=== PATIENT | female | born 1960 | race Caucasian/White ===

== ENCOUNTER 2019-10-01 00:27 | Outpatient (CLI) | payer OTHER, SELFPAY ==
[2019-10-01 19:09] LABS: SARS-CoV-2 RNA PCR Negative
== END 2019-10-01 00:28 | disposition home or self-care (01) ==
LOC: ANHCOVIDDT 00:27
PROVIDERS: PCP Internal Medicine; Visit Provider Internal Medicine Gastroenterology
DX: Z01.812 Encounter for preprocedural laboratory examination (principal); Z11.59 Encounter for screening for other viral diseases
CPT/HCPCS: 87635; C9803; U0003

== ENCOUNTER 2019-10-03 01:02 | Day surgery (SDC) | payer OTHER, SELFPAY ==
[2019-09-26 12:37] VITALS: BMI 33.1
[2019-10-03 09:22] VITALS: BP 136/79; PULSE 108; RESP 22; TEMP 37.4; O2SAT 98; BMI 32.2
--- NOTE | 2019-10-03 09:31 | PM.HPGS ---
History of Present Illness History of Present Illness Consent: Risks, benefits, and alternatives have been discussed and questions answered. Patient agrees to proceed with procedure. Chief complaint: Diarrhea Narrative: Silke Parks is a 59 year old W female referred for colonoscopy secondary to history of chronic diarrhea. Patient states this began suddenly in August 18. She thinks he ate some bad lettuce. Stool cultures were done which were negative. Patient has gradually improved continues to have 1-2 loose stools in the morning. No rectal bleeding. Initially patient has a fever this has resolved as well. She has lost about 20 lb. No family history of inflammatory bowel disease. No antibiotic exposure. No travel. No well water exposure. Patient did have a colonoscopy approximately 10 years ago which revealed mild diverticular disease. [facility] Past Medical History Medical History B12 deficiency Hypertension Obesity Vitamin D deficiency Family History Family History Mother Parkinsons Social History Social History Smoking status: Former smoker Smoking end date: 03/20/88 Alcohol intake: never Substance use: never Meds Home Medications and Allergies Home Medications Medication Instructions Recorded Confirmed Type albuterol sulfate 90 mcg/actuation 2 puff INHALATION Q4-6H PRN gm 02/05/19 09/26/19 History aerosol inhaler cholecalciferol (vitamin D3) 50 2,000 unit PO DAILY 02/05/19 09/26/19 History mcg (2,000 unit) tablet vitamin B complex 1 tablet PO DAILY 02/05/19 09/26/19 History diltiazem HCl 120 mg 120 mg PO DAILY #90 cap 08/15/19 09/26/19 Rx capsule,extended release 24 hr Allergies Allergy/AdvReac Type Severity Reaction Status Date / Time No Known Allergies Allergy Verified 10/03/19 09:19 Vital Signs Vital Signs - 24 hr 10/03/19 09:22 Temperature 37.4 C Pulse Rate 108 H Respiratory Rate 22 H Blood Pressure 136/79 Pulse Oximetry 98 Exam Const: Orientation/consciousness: patient oriented x3 Resp: Auscultation: clear to auscultation bilaterally Cardio: Rate: regular rate Rhythm: regular rhythm Heart sounds: no murmurs GI: GI Palp: Yes Soft to palpation, No Tenderness to palpation present (GI), Yes No hepatosplenomegaly present and No Palpable mass present Auscultation: normal bowel sounds Neuro: General: patient oriented x3 and no focal motor deficits Extrem: General: no pedal edema Assessment and Plan Additional Plan Colonoscopy for evaluation of chronic diarrhea
--- NOTE | 2019-10-03 09:33 | WPDANESEPPF ---
Anes - Initial Pre Proc Eval Procedure: Operation Date: 10/03/19 10:30 Proposed Procedures p Colonoscopy - Sunny Aparicio MD Date/Time: 10/03/19 09:33 Surgeon: Sunny Aparicio MD Pre Op Diagnosis: Diarrhea Patient Data Age: 59 Gender: F Height: 5 ft 7 in Weight: 93.3 kg Last Vital Signs Temp 37.4 C 10/03/19 09:22 Pulse 108 H 10/03/19 09:22 Resp 22 H 10/03/19 09:22 BP 136/79 10/03/19 09:22 Pulse Ox 98 10/03/19 09:22 Allergies Allergy/AdvReac Type Severity Reaction Status Date / Time No Known Allergies Allergy Verified 10/03/19 09:19 Home Medications Medication Instructions Recorded Confirmed Type albuterol sulfate 90 mcg/actuation 2 puff INHALATION Q4-6H PRN gm 02/05/19 09/26/19 History aerosol inhaler cholecalciferol (vitamin D3) 50 2,000 unit PO DAILY 02/05/19 09/26/19 History mcg (2,000 unit) tablet vitamin B complex 1 tablet PO DAILY 02/05/19 09/26/19 History diltiazem HCl 120 mg 120 mg PO DAILY #90 cap 08/15/19 09/26/19 Rx capsule,extended release 24 hr Patient hx anesthesia problems: post op nausea/vomiting Family hx anesthesia problems: none PMFSH Past Medical History Medical History B12 deficiency Hypertension Obesity Vitamin D deficiency Family History Family History Mother Parkinsons Social History Social History Smoking status: Former smoker Smoking end date: 03/20/88 Alcohol intake: never Substance use: never Anes - Eval Final PreProcedure Day of Procedure 10/03/19 09:33 Patient weight: obese Heart: regular rate and rhythm Lungs: clear to auscultation Airway: Mallampati scale class II Neurological: alert and oriented Last oral intake: >/= 8 hours ASA classification: III Emergent: no Anesthetic plan: proceed Anesthesia type and monitoring: general GIVS and standard monitoring Informed Consent: The patient's anesthetic plan and its attendant risks and benefits were discussed with the patient/family/POA. Questions were solicited and answers provided to the satisfaction of the patient/family/POA.
[2019-10-03] MEDS: LACTATED RINGERS 1,000 ML 150 ML IV CONT (09:34)
[2019-10-03 10:37] VITALS: BP 105/59; PULSE 80; RESP 18; O2SAT 95
[2019-10-03 10:47] VITALS: BP 115/60; PULSE 68; RESP 18; O2SAT 95
[2019-10-03 10:56] VITALS: BP 116/64; PULSE 69; RESP 18; O2SAT 95
== END 2019-10-03 11:14 | disposition home or self-care (01) ==
PROVIDERS: PCP Internal Medicine; Visit Provider Internal Medicine Gastroenterology
PROC: 0DJD8ZZ Inspection of Lower Intestinal Tract, Via Natural or Artificial Opening Endoscopic (ICD-10-PCS; CPT 45378; principal; 2019-10-03 10:30)
DX: R19.7 Diarrhea, unspecified (principal); K57.30 Diverticulosis of large intestine without perforation or abscess without bleeding; I10 Essential (primary) hypertension; E55.9 Vitamin D deficiency, unspecified; E53.8 Deficiency of other specified B group vitamins; E66.9 Obesity, unspecified; Z68.32 Body mass index [BMI] 32.0-32.9, adult; Z87.891 Personal history of nicotine dependence
CPT/HCPCS: 45380; 88305; J2704; J7120

== ENCOUNTER 2020-10-24 10:59 | Outpatient (CLI) | payer OTHER, SELFPAY ==
--- NOTE | ~2020-10-24 | MM_ITS ---
EXAMINATION: MM screening [facility] BI w danay HISTORY: Screening TECHNIQUE: Craniocaudal and mediolateral oblique 3-D tomosynthesis images were obtained and synthetic 2-D images were generated. CAD analysis was submitted and interpreted. COMPARISON: Comparison to multiple prior studies sequentially, with oldest reviewed study dated 09/2011. BREAST PARENCHYMAL COMPOSITION: There are scattered areas of fibroglandular density. FINDINGS: There is no evidence of suspicious mass, calcification, or architectural distortion to sugg est malignancy in either breast. There has been no suspicious interval change. IMPRESSION: 1. No mammographic evidence of malignancy. 2. Recommend routine screening mammography in one year. BI-RADS Category 1: Negative Reviewed, dictated and finalized at location A.
== END 2020-10-24 11:00 | disposition home or self-care (01) ==
PROVIDERS: PCP Internal Medicine; Visit Provider Clinical Nurse Specialist
DX: Z12.31 Encounter for screening mammogram for malignant neoplasm of breast (principal)
CPT/HCPCS: 77063; 77067

== ENCOUNTER → 2021-05-13 11:31 | Outpatient (CLI) | payer OTHER, SELFPAY ==
--- NOTE | ~2021-05-13 | XR_ITS ---
XR chest 2V 05/13/2021 11:47 Indication: Chest pain Procedure: 2 view chest Comparison: 03/01/2026 Findings: Heart size is normal. No focal air space disease, pulmonary edema, pleural effusion or susp ected pneumothorax. Impression: 1: No acute cardiopulmonary disease. Reviewed, dictated and finalized at location B. [employer] COORDINATOR Impression: 1: No acute cardiopulmonary disease.
== END ==
PROVIDERS: PCP Internal Medicine; Visit Provider Nurse Practitioner
DX: R05.9 Cough, unspecified (principal); R50.9 Fever, unspecified
CPT/HCPCS: 71046

== ENCOUNTER 2021-06-10 07:22 | Outpatient (CLI) | payer OTHER, SELFPAY ==
--- NOTE | ~2021-06-10 | US_ITS ---
US right upper quadrant INDICATION: Elevated liver transaminase. Epigastric pain. PROCEDURE: Realtime right upper abdominal ultrasound. COMPARISON: No prior studies for comparison. FINDINGS: The pancreas is normal without focal mass or pancreatic ductal dilation. Liver echotexture is normal without focal mass or intrahepatic biliary dilatation. There is normal directional flow i n the portal vein. There are gallstones. Common bile duct measures 4 mm. No sonographic Ferraro's sign. IMPRESSION: 1: Cholelithiasis. Reviewed, dictated and finalized at location A. IMPRESSION: 1: Cholelithiasis.
== END 2021-06-10 07:23 | disposition home or self-care (01) ==
PROVIDERS: PCP Internal Medicine; Visit Provider Clinical Nurse Specialist
DX: R74.01 Elevation of levels of liver transaminase levels (principal); R07.2 Precordial pain; K80.20 Calculus of gallbladder without cholecystitis without obstruction
CPT/HCPCS: 76705

== ENCOUNTER 2021-06-25 07:21 | Outpatient (CLI) | payer OTHER, SELFPAY ==
--- NOTE | ~2021-06-25 | NM_ITS ---
EXAMINATION: NM hepatobiliary wo pharm DATE: 06/25/2021 10:23 INDICATION: Calculus of the gallbladder without cholecystitis. COMPARISON: Ultrasound 06/10/2021 TECHNIQUE: 5.1 mCi Tc-99m mebrofenin (Choletec) was administered intravenously. Scintigraphic images of the abdomen were obtained for one hour. Then, the patient drank 8 oz Ensure, and imaging was cont inued for 60 minutes. FINDINGS: There is normal clearance of radiotracer from the blood pool. There is homogeneous tracer u ptake by the liver. Activity progresses to the bowel and gallbladder. Gallbladder ejection fraction (GBEF) was 18%. Note that with this technique, normal GBEF >= 33%. IMPRESSION: 1. Low gallbladder ejection fraction, consistent with gallbladder dysfunction and/or chronic cholecy stitis. Reviewed, dictated and finalized at location A. IMPRESSION: 1. Low gallbladder ejection fraction, consistent with gallbladder dysfunction and/or chronic cholecystitis.
== END 2021-06-25 07:22 | disposition home or self-care (01) ==
PROVIDERS: PCP Internal Medicine; Visit Provider Clinical Nurse Specialist
DX: K80.20 Calculus of gallbladder without cholecystitis without obstruction (principal)
CPT/HCPCS: 78226; A9537

== ENCOUNTER 2022-10-25 08:43 | Outpatient (CLI) | payer OTHER, SELFPAY ==
--- NOTE | ~2022-10-25 | MM_ITS ---
EXAMINATION: MM screening [facility] BI w danay HISTORY: Screening mammogram TECHNIQUE: Craniocaudal and mediolateral oblique 3-D tomosynthesis images were obtained and synthetic 2-D images were generated. CAD analysis was submitted and interpreted. COMPARISON: 10/24/2020, 04/21/2016, 06/19/2014 BREAST PARENCHYMAL COMPOSITION: The breasts are heterogeneously dense, which may obscure small masses . FINDINGS: Interval decrease in breast size is consistent with weight loss. No suspicious mass, calcif ication, or architectural distortion are identified in either breast to suggest malignancy. There has been no suspicious interval change. IMPRESSION: 1. No mammographic evidence of malignancy. 2. Recommend routine screening mammography in one year. BI-RADS Category 1: Negative Reviewed, dictated and finalized at location A.
== END 2022-10-25 08:44 | disposition home or self-care (01) ==
PROVIDERS: PCP Internal Medicine; Visit Provider Obstetrics & Gynecology
DX: Z12.31 Encounter for screening mammogram for malignant neoplasm of breast (principal)
CPT/HCPCS: 77063; 77067